=== PATIENT | female | born 1990 | race Caucasian/White ===

== ENCOUNTER 2017-11-30 14:47 | Emergency (ER) | payer MEDICAID ==
[2017-11-30 15:20] LABS: BASOPHILS % (AUTO) 0.3 %; EOSINOPHILS # (AUTO) 0.1 10^3/uL (0.0-0.7); EOSINOPHILS % (AUTO) 0.9 %; HGB - HEMOGLOBIN 12.7 g/dL (12.0-16.0); LYMPHOCYTES # (AUTO) 2.4 10^3/uL (1.5-3.5); LYMPHOCYTES % (AUTO) 26.2 %; MEAN CORPUSCULAR HEMOGLOBIN 30.7 pg (27.0-31.0); MEAN CORPUSCULAR HGB CONC 33.6 g/dL (32.0-36.0); MEAN CORPUSCULAR VOLUME 91.5 fL (81.0-99.0); MEAN PLATELET VOLUME 7.5 fL (7.9-10.8); MONOCYTES # (AUTO) 0.8 10^3/uL (0.0-1.0); MONOCYTES % (AUTO) 8.7 %; NEUTROPHILS % (AUTO) 63.9 %; PLT - PLATELET COUNT 293 10^3/uL (130-450); RED BLOOD COUNT 4.15 10^6/uL (4.20-5.40); WHITE BLOOD COUNT 9.3 x10^3/uL (4.8-10.8)
[2017-11-30 15:33] LABS: ALBUMIN 4.3 g/dL (3.2-5.5); ALBUMIN/GLOBULIN RATIO 1.5 (1.0-2.2); BILIRUBIN,TOTAL 0.8 mg/dL (0.2-1.0); CALCIUM 9.2 mg/dL (8.5-10.3); CREATININE 0.8 mg/dL (0.4-1.0); TOTAL PROTEIN 7.1 g/dL (6.7-8.2)
[2017-11-30 16:57] LABS: BILIRUBIN,URINE NEGATIVE (NEGATIVE); GLUCOSE, URINE (UA) NEGATIVE (NEGATIVE); KETONES,URINE (UA) NEGATIVE (NEGATIVE); LEUKOCYTE ESTERASE, URINE NEGATIVE (NEGATIVE); NITRITE,URINE NEGATIVE (NEGATIVE); OCCULT BLOOD,URINE NEGATIVE (NEGATIVE); PH,URINE 5.5 PH (5.0-7.5); PROTEIN,URINE NEGATIVE (NEGATIVE); UROBILINOGEN,URINE 0.2 (NORMAL) E.U./dL (NORMAL)
[2017-11-30 17:01] LABS: CLARITY,URINE CLEAR (CLEAR); HCG UR QUAL NEGATIVE
--- NOTE | 2017-11-30 17:37 | ED Physician Documentation ---
PD HPI FEMALE - Stated complaint Stated Complaint: LOWER R ABD PX, LOW BACK PX - Chief complaint Chief Complaint: Abd Pain - History obtained from History obtained from: Patient - History of Present Illness Timing - onset: How many weeks ago (1) Timing - duration: Weeks (1) Timing - details: Gradual onset, Intermittant, Waxing and waning Pain level max: 7 Pain level max: 3 Associated symptoms: Other (R pelvic pain). No: Fever, Chest/shoulder pain, Abdominal pain, Back pain, Pelvic pain, Vaginal pain, Vaginal bleeding, Vaginal discharge Contributing factors: Sexually active. No: , Tubal ligation, Hysterectomy Similar symptoms before: Has not had sx before Recently seen: Not recently seen - Additional information Additional information: LMP approx 2.5 weeks ago Review of Systems Ten Systems: 10 systems reviewed and negative Constitutional: denies: Fever, Chills Ears: denies: Ear pain Nose: denies: Rhinorrhea / runny nose, Congestion Throat: denies: Sore throat Cardiac: denies: Chest pain / pressure Respiratory: denies: Cough, Wheezing GI: denies: Nausea, Vomiting, Diarrhea : denies: Dysuria, Frequency, Hesitancy Skin: denies: Rash Musculoskeletal: denies: Neck pain, Back pain Neurologic: denies: Headache PD PAST MEDICAL HISTORY - Past Medical History Past Medical History: No - Past Surgical History Past Surgical History: No - Present Medications Home Medications: Ambulatory Orders Medication Instructions Recorded Confirmed Amox/Clav 875/125 [Augmentin] 1 tab PO Q12H #20 tablet 11/30/17 - Allergies Allergies/Adverse Reactions: Allergies Allergy/AdvReac Type Severity Reaction Status Date / Time Sulfa (Sulfonamide Allergy Unknown Verified 11/30/17 15:04 Antibiotics) - Living Situation Living Situation: reports: With family Living Arrangement: reports: At home - Social History Does the pt smoke?: No Does the pt have substance abuse?: No - Family History Family history: reports: Non contributory PD ED PE NORMAL - Vitals Vital signs reviewed: Yes - General General: Alert and oriented X 3 - HEENT HEENT: Moist mucous membranes - Neck Neck: Supple, no meningeal sign - Cardiac Cardiac: RRR - Respiratory Respiratory: No respiratory distress, Clear bilaterally - Abdomen Abdomen: Soft, Other (TTP R low pelvic. no peritoneal signs. neg rovsing, neg psoas, neg obturator. no tenderness at mcburney's point. ) - Female Female : Pt declined - Back Back: No CVA TTP, No spinal TTP - Derm Derm: Warm and dry, No rash - Neuro Neuro: Alert and oriented X 3 - Psych Psych: Normal mood, Normal affect Results - Vitals Vitals: Vital Signs - 24 hr 11/30/17 11/30/17 11/30/17 14:59 20:08 21:56 Temperature 36.2 C L 37 C 36.5 C Heart Rate 63 56 L 58 L Respiratory 16 12 16 Rate Blood Pressure 110/65 109/61 113/65 O2 Saturation 100 100 98 11/30/17 22:38 Temperature 37.0 C Heart Rate 70 Respiratory 16 Rate Blood Pressure 118/64 O2 Saturation 98 Oxygen O2 Source Room air - Labs Labs: Laboratory Tests 11/30/17 11/30/17 11/30/17 15:17 15:17 16:51 WBC 9.3 RBC 4.15 L Hgb 12.7 Hct 37.9 MCV 91.5 MCH 30.7 MCHC 33.6 RDW 13.0 Plt Count 293 MPV 7.5 L Neut # (Auto) 6.0 Lymph # (Auto) 2.4 [place] # (Auto) 0.8 Eos # (Auto) 0.1 Baso # (Auto) 0.0 Absolute Nucleated RBC 0.01 Nucleated RBC % 0.1 Sodium 138 Potassium 3.7 Chloride 103 Carbon Dioxide 27 Anion Gap 8.0 BUN 16 Creatinine 0.8 Estimated GFR (MDRD) 85 L Glucose 98 Calcium 9.2 Total Bilirubin 0.8 AST 20 ALT 13 Alkaline Phosphatase 45 Total Protein 7.1 Albumin 4.3 Globulin 2.8 Albumin/Globulin Ratio 1.5 Lipase 37 Urine Color YELLOW Urine Clarity CLEAR Urine pH 5.5 Ur Specific [place] <=1.005 Urine Protein NEGATIVE Urine Glucose (UA) NEGATIVE Urine Ketones NEGATIVE Urine Occult Blood NEGATIVE Urine Nitrite NEGATIVE Urine Bilirubin NEGATIVE Urine Urobilinogen 0.2 (NORMAL) Ur Leukocyte Esterase NEGATIVE Ur Microscopic Review NOT INDICATED Urine Culture Comments NOT INDICATED Urine HCG, Qual NEGATIVE - Rads (name of study) pelvic US Radiology: Prelim report reviewed, EMP read contemporaneously, See rad report ( Normal adnexa and endometrium. Possible sub-septate uterine morphology. 2.8 cm cyst in the right ovary) CT abd/pelvis Radiology: Prelim report reviewed, EMP read contemporaneously, See rad report ( Probable appendicitis. Clinical correlation recommended) PD MEDICAL DECISION MAKING - ED course Complexity details: reviewed results, re-evaluated patient, considered differential, d/w patient, d/w family, d/w learning consultant ED course: Patient is a 19-year-old female who has had right lower abdominal pain in the deep pelvis for the past week. Became worse over the past day and a half or so. No fevers. No vomiting. No diarrhea. No vaginal bleeding or discharge. No acute findings on ultrasound other than a 2.[address] scan was then undertaken which showed probable appendicitis, but this was equivocal. No fever. Normal white blood cell count. Discussed the case with Dr. Arthur, general surgery who does not feel that he would take this patient to the operating room and wants her placed on oral antibiotics and he will check on her in the office tomorrow. Discussed this with the patient and she is comfortable with this plan. She is comfortable going home and not staying in the hospital for observation. If she is not feeling well tomorrow, she will return to the emergency department. If she is feeling better, she will follow- up in the office with Dr. Arthur tomorrow for repeat evaluation. She was given IV Zosyn and will place on Augmentin. Patient counseled regarding signs and symptoms for which I believe and urgent re-evaluation would be necessary. Patient with good understanding of and agreement to plan and is comfortable going home at this time This document was made in part using voice recognition software. While efforts are made to proofread this document, sound alike and grammatical errors may occur. - Sepsis Event Vital Signs: Vital Signs - 24 hr 11/30/17 11/30/17 11/30/17 14:59 20:08 21:56 Temperature 36.2 C L 37 C 36.5 C Heart Rate 63 56 L 58 L Respiratory 16 12 16 Rate Blood Pressure 110/65 109/61 113/65 O2 Saturation 100 100 98 11/30/17 22:38 Temperature 37.0 C Heart Rate 70 Respiratory 16 Rate Blood Pressure 118/64 O2 Saturation 98 Oxygen O2 Source Room air Departure - Departure Disposition: 01 Home, Self Care Clinical Impression: Abdominal pain Qualifiers: Abdominal location: generalized Qualified Code(s): R10.84 - Generalized abdominal pain Condition: Stable Instructions: ED Abdominal Pain Appendx Poss Follow-Up: Jesus Arthur MD [Provider Admit Priv/Credential] - Tomorrow Prescriptions: Amox/Clav 875/125 [Augmentin] 1 tab PO Q12H #20 tablet Comments: Take all antibiotics until gone. Return if you worsen. If you are the same or doing better, please check in with Dr. Arthur tomorrow. If you are worsening , increasing pain, fevers, vomiting etc. return here. Discharge Date/Time: 11/30/17 22:38
--- NOTE | 2017-11-30 18:42 | Ultrasound Report ---
Procedure Date: 11/30/2017 Accession Number: [id number] / [id number] Procedure: US - Pelvic w/Transvag+Doppler Comp CPT Code: FULL RESULT: EXAM: PELVIC ULTRASOUND EXAM DATE: 11/30/2017 06:21 PM. CLINICAL HISTORY: Pelvic pain, right. COMPARISON: None. TECHNIQUE: Realtime transabdominal pelvic scan performed to identify the uterus and adnexa and as an overview of other pelvic structures, followed by transvaginal scan to provide greater detail of the uterus and adnexa, with static image documentation. FINDINGS: Uterus: 7.7 x 3.2 x 4.1 cm, volume 53 cc. Anteflexed position. Normal overall size and echotexture. Possible sub-septate configuration. Masses: None. Endometrium: 7.6 mm. Normal. Cervix: Unremarkable. Right Ovary: 3.7 x 1.8 x 2.8 cm, volume 10 cc. Normal echotexture and blood flow. A cyst measures up to 2.8 cm, within normal limits for age. Left Ovary: 4.2 x 2.1 x 2.6 cm, volume 12 cc. Normal echotexture and blood flow. Free Fluid: None. Other: None. IMPRESSION: 1. Normal adnexa and endometrium. 2. Possible subseptate uterine morphology. RADIA
[2017-11-30] MEDS ORDERED: KETOROLAC 60 MG/2 ML VIAL IVP STA (19:13)
[2017-11-30] MEDS ORDERED: IOPAMIDOL-300 100 ML VIAL ONE (19:22)
[2017-11-30] MEDS ORDERED: IOPAMIDOL-300 100 ML VIAL IVP ONE (19:50)
--- NOTE | 2017-11-30 21:07 | CT Report ---
Procedure Date: 11/30/2017 Accession Number: [id number] / [id number] Procedure: CT - Abdomen/Pelvis W/ CPT Code: FULL RESULT: EXAM: CT ABDOMEN AND PELVIS EXAM DATE: 11/30/2017 07:52 PM. CLINICAL HISTORY: Right lower quadrant abdomen pain. COMPARISONS: No prior CT exam. Pelvic ultrasound earlier today. TECHNIQUE: Routine helical CT imaging was performed through the abdomen and pelvis. IV contrast: 100 mL Isovue-300. Enteric contrast: No. Reconstructions: Coronal and sagittal. In accordance with CT protocol optimization, one or more of the following dose reduction techniques were utilized for this exam: automated exposure control, adjustment of mA and/or KV based on patient size, or use of iterative reconstructive technique. FINDINGS: Lung Bases: Unremarkable. Liver: Normal. No masses. Gallbladder/Bile Ducts: Unremarkable. Spleen: Normal. Pancreas: Normal. Adrenal Glands: Normal. Kidneys: Normal. 1 cm renal cysts bilaterally. No masses or hydronephrosis. Peritoneal Cavity/Bowel: Normal. No free fluid, free air or adenopathy. No masses or acute inflammatory process. Proximal half of the appendix appears normal. However, suspect moderate wall thickening of the distal half of the appendix, with moderate amount adjacent edema, difficult to definitely confirm given the multiple loops of nonopacified small bowel deep lower right pelvis. This is suggested on coronal image 27, axial image 65, and coronal image 27. 1 x 2 mm linear high density (? Tiny appendicolith) Within the appendix at the possible transition point. Pelvic Organs: 2.5 cm involuting cyst right ovary. Trace amount of free cul-de-sac fluid. The bladder and visualized pelvic organs are within normal limits. Vasculature: No aneurysms or other significant abnormality. Bones: No significant abnormality. Other: None. IMPRESSION: Probable appendicitis. Lack of oral contrast precludes definitive diagnosis. Clinical correlation recommended. RADIA
[2017-11-30] MEDS ORDERED: PIPERACILLIN/TAZOBACTAM 3.375 GM in SODIUM CHLORIDE 0.9% MINIBAG 100 ML IV STA (21:32)
[2017-11-30 22:44] VITALS: BP 118/64
== END 2017-11-30 22:38 | disposition home or self-care (01) ==
LOC: ED 14:47
DX: R10.9 Unspecified abdominal pain (principal); N83.201 Unspecified ovarian cyst, right side
CPT/HCPCS: 36415; 74177; 76830; 76856; 80053; 81003; 81025; 83690; 85025; 93975; 96365; 96375; 99283; 99284; Q9967; 81001; 87086

== ENCOUNTER 2017-12-01 14:58 | Emergency (ER) | payer MEDICAID ==
[2017-12-01 15:23] LABS: BASOPHILS # (AUTO) 0.1 10^3/uL (0.0-0.1); BASOPHILS % (AUTO) 0.5 %; EOSINOPHILS # (AUTO) 0.1 10^3/uL (0.0-0.7); EOSINOPHILS % (AUTO) 0.7 %; LYMPHOCYTES # (AUTO) 2.2 10^3/uL (1.5-3.5); MEAN CORPUSCULAR HEMOGLOBIN 31.2 pg (27.0-31.0); MEAN CORPUSCULAR VOLUME 91.8 fL (81.0-99.0); MEAN PLATELET VOLUME 7.8 fL (7.9-10.8); MONOCYTES # (AUTO) 0.8 10^3/uL (0.0-1.0); NEUTROPHILS # (AUTO) 6.6 10^3/uL (1.5-6.6); NEUTROPHILS % (AUTO) 67.8 %; PLT - PLATELET COUNT 271 10^3/uL (130-450); RED BLOOD COUNT 3.84 10^6/uL (4.20-5.40); RED CELL DISTRIBUTION WIDTH 13.3 % (12.0-15.0); WHITE BLOOD COUNT 9.8 x10^3/uL (4.8-10.8)
[2017-12-01 15:36] LABS: ALBUMIN/GLOBULIN RATIO 1.5 (1.0-2.2); BILIRUBIN,TOTAL 0.8 mg/dL (0.2-1.0); CALCIUM 9.2 mg/dL (8.5-10.3); TOTAL PROTEIN 6.6 g/dL (6.7-8.2)
[2017-12-01] MEDS ORDERED: cefTRIAXone 1 GM VIAL IVP STA (17:42)
[2017-12-01] MEDS ORDERED: SODIUM CHLORIDE 0.9% 1,000 ML IV ONE (17:42)
[2017-12-01] MEDS ORDERED: ACETAMINOPHEN 325 MG TABLET PO STA (17:50)
--- NOTE | 2017-12-01 18:45 | ED Physician Documentation ---
PD HPI ABD PAIN - Stated complaint Stated Complaint: ABD PX/DIZZY - Chief complaint Chief Complaint: Abd Pain - History obtained from History obtained from: Patient - History of Present Illness Pain level max: 6 Pain level now: 5 Quality: Aching, Pain Location: RLQ Improved by: Laying still Worsened by: Palpation Associated symptoms: No: Fever, Nausea, Vomiting, Hematemesis, Diarrhea - Additional information Additional information: Patient is a 27-year-old female with right lower quadrant abdominal pain for the past week that is worsened over the past 2 days. Seen here last night and had a CT scan that showed probable appendicitis. Dr. Arthur was counseled at that time and did not feel the appendix need to be removed. She has returned today for repeat evaluation as requested. She states she is still having pain in the right lower quadrant. No fevers. No vomiting. She does feel lightheaded with standing today. Review of Systems Ten Systems: 10 systems reviewed and negative Constitutional: denies: Fever, Chills Nose: denies: Rhinorrhea / runny nose, Congestion Respiratory: denies: Cough GI: denies: Nausea, Vomiting, Diarrhea : denies: Now EGA Skin: denies: Rash PD PAST MEDICAL HISTORY - Past Medical History Past Medical History: No - Past Surgical History Past Surgical History: No - Present Medications Home Medications: Ambulatory Orders Medication Instructions Recorded Confirmed Amox/Clav 875/125 [Augmentin] 1 tab PO Q12H #20 tablet 11/30/17 12/01/17 - Allergies Allergies/Adverse Reactions: Allergies Allergy/AdvReac Type Severity Reaction Status Date / Time Sulfa (Sulfonamide Allergy Unknown Verified 12/01/17 15:27 Antibiotics) - Living Situation Living Situation: reports: With family Living Arrangement: reports: At home - Social History Does the pt smoke?: No Smoking Status: Never smoker Does the pt drink ETOH?: Yes Does the pt have substance abuse?: No - Immunizations Immunizations are current?: Yes PD ED PE NORMAL - Vitals Vital signs reviewed: Yes - General General: Alert and oriented X 3, No acute distress - HEENT HEENT: Moist mucous membranes - Neck Neck: Supple, no meningeal sign - Cardiac Cardiac: RRR - Respiratory Respiratory: No respiratory distress, Clear bilaterally - Abdomen Abdomen: Soft, Non distended, Other (TTP RLQ without peritoneal signs. no rebound or guarding. neg rovsing. neg psoas.) - Back Back: No spinal TTP - Derm Derm: Warm and dry - Extremities Extremities: No edema - Neuro Neuro: Alert and oriented X 3 - Psych Psych: Normal mood, Normal affect Results - Vitals Vitals: Vital Signs - 24 hr 12/01/17 12/01/17 15:25 18:52 Temperature 36.9 C 36.5 C Heart Rate 74 54 L Respiratory 16 18 Rate Blood Pressure 108/71 106/59 L O2 Saturation 98 100 Oxygen O2 Source Room air - Labs Labs: Laboratory Tests 12/01/17 12/01/17 15:16 15:16 WBC 9.8 RBC 3.84 L Hgb 12.0 Hct 35.3 L MCV 91.8 MCH 31.2 H MCHC 34.0 RDW 13.3 Plt Count 271 MPV 7.8 L Neut # (Auto) 6.6 Lymph # (Auto) 2.2 [place] # (Auto) 0.8 Eos # (Auto) 0.1 Baso # (Auto) 0.1 Absolute Nucleated RBC 0.00 Nucleated RBC % 0.0 Sodium 139 Potassium 4.3 Chloride 107 Carbon Dioxide 26 Anion Gap 6.0 BUN 16 Creatinine 1.0 Estimated GFR (MDRD) 66 L Glucose 107 H Calcium 9.2 Total Bilirubin 0.8 AST 16 ALT 12 Alkaline Phosphatase 38 L Total Protein 6.6 L Albumin 4.0 Globulin 2.6 Albumin/Globulin Ratio 1.5 Lipase 35 PD MEDICAL DECISION MAKING - ED course Complexity details: reviewed old records, reviewed results, re-evaluated patient , considered differential, d/w patient, d/w family, d/w loan consultant ED course: Patient is a 27-year-old female who presents to the emergency department for repeat evaluation of her abdomen after a CT showed probable appendicitis last night. Will laboratory testing was reperformed. Dr. Arthur came to the emergency department and evaluated the patient personally. He states that after evaluating the patient and speaking with her he does not feel that she likely has appendicitis and recommends that she continue the antibiotics at home. I gave the patient strict return precautions and she will follow up with him in 2 days for repeat evaluation. She will return here if she worsens or fails to improve. Patient counseled regarding signs and symptoms for which I believe and urgent re-evaluation would be necessary. Patient with good understanding of and agreement to plan and is comfortable going home at this time This document was made in part using voice recognition software. While efforts are made to proofread this document, sound alike and grammatical errors may occur. Patient and spouse were counseled at length regarding potential complications and the diagnostic uncertainty at this time. - Sepsis Event Vital Signs: Vital Signs - 24 hr 12/01/17 12/01/17 15:25 18:52 Temperature 36.9 C 36.5 C Heart Rate 74 54 L Respiratory 16 18 Rate Blood Pressure 108/71 106/59 L O2 Saturation 98 100 Oxygen O2 Source Room air Departure - Departure Disposition: 01 Home, Self Care Clinical Impression: Abdominal pain Qualifiers: Abdominal location: right lower quadrant Qualified Code(s): R10.31 - Right lower quadrant pain Condition: Good Instructions: ED Abdominal Pain Appendx Poss Follow-Up: Jesus Arthur MD [Provider Admit Priv/Credential] - 12/03/17 Comments: Continue the antibiotics were prescribed last night. Follow-up with Dr. Arthur in 2 days for a recheck. Return sooner if you worsen. Discharge Date/Time: 12/01/17 18:53
[2017-12-01 18:52] VITALS: BP 106/59
--- NOTE | 2017-12-02 01:55 | CONSULTATION NOTE ---
Referring Provider Name of Referring Provider:: Dr. Francois Schilling Consult Date: 12/01/17 Chief Complaint - Chief Complaint Chief Complaint: Abdominal pain History of Present Illness - Admitted From Admitted From:: Seen in ED Room#1 - History Obtained From Records Reviewed: Yes History obtained from: Patient and chart Exam Limitations: None - History of Present Illness HPI Comment/Other: Dr. Francois Blount asked that I see this very pleasant 27-year-old female for the possibility of acute appendicitis. The patient states that she has had symptoms for over a week. The abdominal pain is migratory. When it comes can be quite severe but then once gone is completely gone. There is been no significant association with nausea, vomiting, diarrhea, or constipation. The patient states that when she does a modified sit up where she twists her torso to her right and left her right knee it seems to make the pain worse. There has been no nausea or vomiting. Nor has there been any significant anorexia. She lives in a [facility]. She is very in tune with healthy eating. We discussed probiotics and the possible deleterious effects of antibiotics. She wondered whether her abdominal pain is a manifestation of an allergy and I explained to her that it was not. I went over the CT findings with her. Of note Dr. Schilling had seen her yesterday and was seeing her again today out of concern. History - Family & Social History Living arrangement: At home Living Situation: With family Meds/Allgy - Home Medications Home Medications: Ambulatory Orders Medication Instructions Recorded Confirmed Amox/Clav 875/125 [Augmentin] 1 tab PO Q12H #20 tablet 11/30/17 12/01/17 - Allergies Allergies/Adverse Reactions: Allergies Allergy/AdvReac Type Severity Reaction Status Date / Time Sulfa (Sulfonamide Allergy Unknown Verified 12/01/17 15:27 Antibiotics) Review of Systems - Gastrointestinal Gastrointestinal: reports: Abdominal pain (Occasional and migratory throughout abdomen.) Exam - Vital Signs Reviewed Vital Signs: Yes Vital Signs: Vital Signs x48h Temp Pulse Resp BP Pulse Ox 12/01/17 18:52 36.5 C 54 L 18 106/59 L 100 - Physical Exam General Appearance: positive: No acute distress Eyes Bilateral: positive: No lid inflammation, Conjunctivae nml, No scleral icterus ENT: positive: No signs of dehydration Neck: positive: Trachea midline Respiratory: positive: Chest non-tender, No respiratory distress, Breath sounds nml Cardiovascular: positive: Regular rate & rhythm Abdomen: positive: Non-tender (At [place] point.), No organomegaly, Nml bowel sounds, No distention Skin: positive: Color nml Extremities: positive: Nml appearance Neurologic/Psychiatric: positive: Oriented x3 Conclusion/Plan - Diagnosis Diagnosis: Abdominal pain - non surgical at this point and time. - Plan Plan: Watchful waiting. 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 She again has normal lab values. Clinically, she has the exact opposite of a classic story for appendicitis (rn long term care pain, migratory, not persistent, no nausea, no leukocytosis). If she were to develop any of the symptoms I would be inclined to operate on her. I explained her that now that the communication lines are open if she develops a temperature over 38.5 Celsius or 101.5 Fahrenheit to contact me. She has pain localized in the right lower quadrant and it persists to certainly contact me. At some point likely in approximately 1 week assuming her condition does not deteriorate I would recommend repeat CAT scan. - Lab Results Lab results reviewed: Yes Fish Bones: 12/01/17 15:16 12/01/17 15:16 - Diagnostic Imaging Results Diagnostic Imaging Results: positive: Final report reviewed Diagnostic Imaging Results Comments: Please note that the CT reading did change slightly over 24 hours. Clinical correlation is that this is not appendicitis.
== END 2017-12-01 18:53 | disposition home or self-care (01) ==
LOC: ED 14:58
DX: R10.31 Right lower quadrant pain (principal)
CPT/HCPCS: 36415; 80053; 83690; 85025; 96374; 99283; A9270

== ENCOUNTER 2017-12-15 12:40 | Emergency (ER) | payer MEDICAID ==
[2017-12-15 13:03] LABS: BASOPHILS # (AUTO) 0.1 10^3/uL (0.0-0.1); BASOPHILS % (AUTO) 0.5 %; EOSINOPHILS # (AUTO) 0.1 10^3/uL (0.0-0.7); EOSINOPHILS % (AUTO) 0.9 %; HGB - HEMOGLOBIN 11.9 g/dL (12.0-16.0); LYMPHOCYTES # (AUTO) 2.1 10^3/uL (1.5-3.5); LYMPHOCYTES % (AUTO) 14.6 %; MEAN CORPUSCULAR HGB CONC 34.6 g/dL (32.0-36.0); MEAN CORPUSCULAR VOLUME 89.7 fL (81.0-99.0); MONOCYTES # (AUTO) 1.1 10^3/uL (0.0-1.0); MONOCYTES % (AUTO) 7.3 %; NEUTROPHILS # (AUTO) 11.1 10^3/uL (1.5-6.6); NEUTROPHILS % (AUTO) 76.7 %; PLT - PLATELET COUNT 453 10^3/uL (130-450); RED BLOOD COUNT 3.85 10^6/uL (4.20-5.40); RED CELL DISTRIBUTION WIDTH 12.5 % (12.0-15.0); WHITE BLOOD COUNT 14.4 x10^3/uL (4.8-10.8)
[2017-12-15 13:26] LABS: ALBUMIN/GLOBULIN RATIO 1.3 (1.0-2.2); BILIRUBIN,TOTAL 0.5 mg/dL (0.2-1.0); CALCIUM 9.6 mg/dL (8.5-10.3); CREATININE 0.7 mg/dL (0.4-1.0); TOTAL PROTEIN 7.2 g/dL (6.7-8.2)
[2017-12-15] MEDS ORDERED: IOPAMIDOL-300 100 ML VIAL ONE (14:21)
[2017-12-15] MEDS ORDERED: IOPAMIDOL-300 50 ML VIAL ONE (14:22)
[2017-12-15 14:53] LABS: BILIRUBIN,URINE NEGATIVE (NEGATIVE); GLUCOSE, URINE (UA) NEGATIVE (NEGATIVE); KETONES,URINE (UA) NEGATIVE (NEGATIVE); LEUKOCYTE ESTERASE, URINE NEGATIVE (NEGATIVE); NITRITE,URINE NEGATIVE (NEGATIVE); OCCULT BLOOD,URINE SMALL (NEGATIVE); PROTEIN,URINE NEGATIVE (NEGATIVE); UROBILINOGEN,URINE 0.2 (NORMAL) E.U./dL (NORMAL)
[2017-12-15 14:57] LABS: CLARITY,URINE CLEAR (CLEAR); HCG UR QUAL NEGATIVE
[2017-12-15 15:05] LABS: BACTERIA,URINE Rare /HPF (None Seen); RBC,URINE 0-5 /HPF (0-5); SQUAMOUS EPITHELIAL CELL,UR RARE Squamous (<= Few)
--- NOTE | 2017-12-15 15:18 | ED Physician Documentation ---
PD HPI ABD PAIN - Stated complaint Stated Complaint: ABD PAIN, DIZZYNESS - Chief complaint Chief Complaint: Abd Pain - History obtained from History obtained from: Patient - History of Present Illness Timing - onset: How many weeks ago (2-3) Timing - duration: Weeks (2-3) Timing - details: Gradual onset, Waxing and waning Pain level max: 7 Pain level now: 5 Quality: Aching, Pain Location: RLQ Recently seen: Emergency Dept (x2 for the same. started on abx and states now is feeling worse. Possible appendicitis on last CT. Dr. Arthur, consulted at that time and felt it could be better treated with abx rather than surgery at that point.) Review of Systems Ten Systems: 10 systems reviewed and negative Constitutional: denies: Fever, Chills Ears: denies: Ear pain Nose: denies: Rhinorrhea / runny nose, Congestion Throat: denies: Sore throat Cardiac: denies: Chest pain / pressure Respiratory: denies: Cough GI: denies: Vomiting, Constipation, Diarrhea, Hematemesis, Bloody / black stool : denies: Dysuria, Frequency, Hesitancy, Hematuria, Discharge, Vaginal bleeding Skin: denies: Rash Musculoskeletal: denies: Neck pain, Back pain Neurologic: denies: Headache PD PAST MEDICAL HISTORY - Past Medical History Past Medical History: No - Past Surgical History Past Surgical History: No - Present Medications Home Medications: Ambulatory Orders Medication Instructions Recorded Confirmed No Known Home Medications [No 12/15/17 12/15/17 Known Home Medications] - Allergies Allergies/Adverse Reactions: Allergies Allergy/AdvReac Type Severity Reaction Status Date / Time Sulfa (Sulfonamide Allergy Unknown Verified 12/15/17 12:47 Antibiotics) - Social History Does the pt smoke?: No Smoking Status: Never smoker Does the pt drink ETOH?: Yes Does the pt have substance abuse?: No - Immunizations Immunizations are current?: Yes PD ED PE NORMAL - Vitals Vital signs reviewed: Yes - General General: Alert and oriented X 3, No acute distress, Well developed/nourished - HEENT HEENT: Moist mucous membranes - Neck Neck: Supple, no meningeal sign - Cardiac Cardiac: RRR, Strong equal pulses - Respiratory Respiratory: No respiratory distress, Clear bilaterally - Abdomen Abdomen: Soft, Other (TTP RLQ without peritoneal signs) - Female Female : Pt declined - Back Back: No CVA TTP, No spinal TTP - Derm Derm: Warm and dry, No rash - Extremities Extremities: No edema - Neuro Neuro: Alert and oriented X 3 - Psych Psych: Normal mood, Normal affect Results - Vitals Vitals: Vital Signs - 24 hr 12/15/17 12/15/17 12/15/17 12:45 15:30 17:30 Temperature 36.3 C L Heart Rate 69 62 60 Respiratory 16 18 16 Rate Blood Pressure 124/69 114/64 116/62 O2 Saturation 100 100 100 Oxygen O2 Source Room air - Labs Labs: Laboratory Tests 12/15/17 12/15/17 12/15/17 13:00 13:00 13:24 WBC 14.4 H RBC 3.85 L Hgb 11.9 L Hct 34.5 L MCV 89.7 MCH 31.0 MCHC 34.6 RDW 12.5 Plt Count 453 H MPV 7.0 L Neut # (Auto) 11.1 H Lymph # (Auto) 2.1 Bollinger # (Auto) 1.1 H Eos # (Auto) 0.1 Baso # (Auto) 0.1 Absolute Nucleated RBC 0.01 Nucleated RBC % 0.1 Sodium 137 Potassium 4.2 Chloride 101 Carbon Dioxide 27 Anion Gap 9.0 BUN 18 Creatinine 0.7 Estimated GFR (MDRD) 100 Glucose 96 Calcium 9.6 Total Bilirubin 0.5 AST 15 ALT 12 Alkaline Phosphatase 66 Total Protein 7.2 Albumin 4.0 Globulin 3.2 Albumin/Globulin Ratio 1.3 Lipase 33 Urine Color YELLOW Urine Clarity CLEAR Urine pH 6.0 Ur Specific Dennison 1.010 Urine Protein NEGATIVE Urine Glucose (UA) NEGATIVE Urine Ketones NEGATIVE Urine Occult Blood SMALL H Urine Nitrite NEGATIVE Urine Bilirubin NEGATIVE Urine Urobilinogen 0.2 (NORMAL) Ur Leukocyte Esterase NEGATIVE Urine RBC 0-5 Urine WBC 0-3 Ur Squamous Epith Cells RARE Squamous Urine Bacteria Rare Ur Microscopic Review INDICATED Urine Culture Comments NOT INDICATED Urine HCG, Qual 12/15/17 13:24 WBC RBC Hgb Hct MCV MCH MCHC RDW Plt Count MPV Neut # (Auto) Lymph # (Auto) Bollinger # (Auto) Eos # (Auto) Baso # (Auto) Absolute Nucleated RBC Nucleated RBC % Sodium Potassium Chloride Carbon Dioxide Anion Gap BUN Creatinine Estimated GFR (MDRD) Glucose Calcium Total Bilirubin AST ALT Alkaline Phosphatase Total Protein Albumin Globulin Albumin/Globulin Ratio Lipase Urine Color Urine Clarity Urine pH Ur Specific Dennison 1.010 Urine Protein Urine Glucose (UA) Urine Ketones Urine Occult Blood Urine Nitrite Urine Bilirubin Urine Urobilinogen Ur Leukocyte Esterase Urine RBC Urine WBC Ur Squamous Epith Cells Urine Bacteria Ur Microscopic Review Urine Culture Comments Urine HCG, Qual NEGATIVE - Rads (name of study) CT abd/pelvis Radiology: Prelim report reviewed, EMP read contemporaneously, See rad report ( New [id number] right hydronephrosis, with ureteral transition point in the area of the appendix. Differential is between a small occult stone versus secondary involvement with an inflammatory process such as appendicitis/Crohn's disease/gastroenteritis. 2. Distal half of the appendix not visualized. ) PD MEDICAL DECISION MAKING - ED course Complexity details: reviewed old records, reviewed results, re-evaluated patient , considered differential, d/w patient, d/w behavioral health consultant ED course: Patient is a 27-year-old female who has continued right lower quadrant abdominal pain since I saw her a few weeks ago. She finished her antibiotic course but the pain has continued. No fevers but does have a leukocytosis today. CT scan does not reveal a clearly visible abnormal appendix at this time. She does have new mild to moderate right hydronephrosis with ureteral transition point in the area of the appendix, possible occult stone versus secondary involvement of inflammatory process such as appendicitis. Therefore I consulted Dr. Arnold, surgery on-call who came and evaluated the patient. He was getting ready to take her to the operating room and she changed her mind and does not want to go to the operating room, but will instead follow-up as an outpatient. Dr. Arnold does not want to repeat an antibiotic course at this time and I think this is reasonable. Patient and family counseled regarding signs and symptoms for which I believe and urgent re-evaluation would be necessary. Patient with good understanding of and agreement to plan and is comfortable going home at this time This document was made in part using voice recognition software. While efforts are made to proofread this document, sound alike and grammatical errors may occur. - Sepsis Event Vital Signs: Vital Signs - 24 hr 12/15/17 12/15/17 12/15/17 12:45 15:30 17:30 Temperature 36.3 C L Heart Rate 69 62 60 Respiratory 16 18 16 Rate Blood Pressure 124/69 114/64 116/62 O2 Saturation 100 100 100 Oxygen O2 Source Room air Departure - Departure Disposition: Home, Self Care Clinical Impression: Abdominal pain Qualifiers: Abdominal location: right lower quadrant Qualified Code(s): R10.31 - Right lower quadrant pain Condition: Stable Instructions: ED Abdominal Pain Appendx Poss Follow-Up: Artemio Arnold MD [Provider Admit Priv/Credential] - Within 3 Days Comments: As we have discussed, because of your symptoms is unclear today. It may very well be related to an atypical appendicitis or tip appendicitis. Please return if you worsen. It is important to follow-up closely with Dr. Arnold for further evaluation. We [facility] and have elected not to have your appendix out tonight Discharge Date/Time: 12/15/17 19:26
[2017-12-15] MEDS ORDERED: IOPAMIDOL-300 100 ML VIAL IVP ONE (15:37)
[2017-12-15] MEDS ORDERED: IOPAMIDOL-300 50 ML VIAL PO ONE (15:37)
--- NOTE | 2017-12-15 17:22 | CT Report ---
Reason: RLQ abd pain Procedure Date: 12/15/2017 Accession Number: [id number] / [id number] Procedure: CT - Abdomen/Pelvis W/ CPT Code: FULL RESULT: EXAM: CT ABDOMEN AND PELVIS EXAM DATE: 12/15/2017 03:36 PM. CLINICAL HISTORY: RLQ abdominal pain. COMPARISONS: ABDOMEN/PELVIS W/ 11/30/2017. TECHNIQUE: Routine helical CT imaging was performed through the abdomen and pelvis. IV contrast: ISOVUE 300 100mL. Enteric contrast: Oral contrast. Reconstructions: Coronal and sagittal. One hour and 15 minutes after the initial exam, this lady was brought back to the department, voided, with additional 5 mm scans obtained through the pelvis with patient in a prone position. No additional oral nor IV contrast. In accordance with CT protocol optimization, one or more of the following dose reduction techniques were utilized for this exam: automated exposure control, adjustment of mA and/or KV based on patient size, or use of iterative reconstructive technique. FINDINGS: Lung Bases: Unremarkable. Liver: Normal. No masses. Gallbladder/Bile Ducts: Unremarkable. Spleen: Normal. Pancreas: Normal. Adrenal Glands: Normal. Kidneys: Normal left kidney. New [id number]-[id number] right hydronephrosis. Right ureter is mildly distended to the level of the mid pelvis level with the cecum, without appreciable calcification. Distal third is tiny in caliber. Peritoneal Cavity/Bowel: Normal. No free fluid, free air or adenopathy. No masses or acute inflammatory process. Despite the more than 2-hour delay after ingestion of contrast, no oral contrast is seen within the distalmost ileum. Proximal half of the appendix is normal. Distal half not seen. Pelvic Organs: Normal. The bladder and visualized pelvic organs are within normal limits. Vasculature: No aneurysms or other significant abnormality. Bones: No significant abnormality. Other: None. IMPRESSION: 1. New [id number] right hydronephrosis, with ureteral transition point in the area of the appendix. Differential is between a small occult stone versus secondary involvement with an inflammatory process such as appendicitis/Crohn's disease/gastroenteritis. 2. Distal half of the appendix not visualized. RADIA The above findings were discussed with Jem Schilling by Dr. Olive Michelle at 17:20 hrs on 12/15/17.
[2017-12-15] MEDS ORDERED: SODIUM CHLORIDE 0.9% 1,000 ML IV ONE ×2 (17:34→19:17)
[2017-12-15] MEDS ORDERED: PIPERACILLIN/TAZOBACTAM 3.375 GM in SODIUM CHLORIDE 0.9% MINIBAG 100 ML IV STA (17:34)
--- NOTE | 2017-12-15 18:09 | CONSULTATION NOTE ---
Referring Provider Name of Referring Provider:: Dr. Schilling Consult Date: 12/15/17 Chief Complaint - Chief Complaint Chief Complaint: abd pain History of Present Illness - Admitted From Admitted From:: ER - History Obtained From Records Reviewed: yes History obtained from: pt and records Exam Limitations: none - History of Present Illness HPI Comment/Other: 27 yo [id number] with LMP 2 days ago with recurrent/persistent RLQ abdominal pain. Pain is sharp, colicky, waxes and wanes but never completely resolves following onset approximately 3 weeks ago. Associated nausea but no vomiting, dizziness but no syncope, radiation into back and down right leg at times, without urinary or respiratory sx. No prior similar episodes although she reports severe dysmenorrhea sx different than these. No recent wt loss, change in bowel habits, melena, BRBPR or FH GI tumors. +FH appendicitis in her father. She was seen initially on 12/[address] findings were suggestive of appendiceal appendicolith and tip appendicitis. She was treated with 10 days of Augmentin without improvement in sx, prompting her return to the ER today with worsening pain. Previous evaluation has shown nl labs and nl pelvic US. Repeat CT abd/ pelvis today shows inadequate visualization of the distal appendix and mild right sided hydronephrosis. She denies hematuria or dysuria, but notes urinary frequency. UA neg except small blood (pt having period). WBC elevated at 14K. Surgical consultation was requested. 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), Other (dysmenorrhea) : reports: Frequency Musculoskeletal: reports: None MRSA Hx?: No - Family & Social History Family History Comment/Other: neg for GI tumors; + for appendicitis in father Living arrangement: At home - Substance History Use: Uses substance without health or social issues: Alcohol Abuse: Recurrent use of substance despite neg consequences: NONE Dependence: Experiences withdrawal or developed tolerances: NONE - POLST POLST Status: Full Code Meds/Allgy - Home Medications Home Medications: Ambulatory Orders Medication Instructions Recorded Confirmed No Known Home Medications [No 12/15/17 12/15/17 Known Home Medications] - Allergies Allergies/Adverse Reactions: Allergies Allergy/AdvReac Type Severity Reaction Status Date / Time Sulfa (Sulfonamide Allergy Unknown Verified 12/15/17 12:47 Antibiotics) Review of Systems - Constitutional Constitutional: reports: Other (dizziness) - Cardiovascular Cariovascular: reports: Lightheadedness. denies: Chest pain - Respiratory Respiratory: denies: Cough, Sputum production, Wheezing - Gastrointestinal Gastrointestinal: reports: Abdominal pain, Abdominal distention, Nausea, Bloating. denies: Change in bowel habits, Rectal bleeding, Black stools, Bloody stools, Vomiting, Chandan blood emesis, Coffee grounds emesis, Reflux/ heartburn - Genitourinary Genitourinary: reports: Frequency. denies: Dysuria, Hematuria - Neurological Neurological: reports: Dizziness - Hematologic/Lymphatic Hematologic/Lymphatic: denies: Bruising, Blood clots, Bleeding tendencies - All Other Systems All Other Systems: reports: Reviewed and negative Exam - Vital Signs Reviewed Vital Signs: Yes Vital Signs: Vital Signs x48h Temp Pulse Resp BP Pulse Ox 12/15/17 15:30 62 18 114/64 100 12/15/17 12:45 36.3 C L 69 16 124/69 100 - Physical Exam General Appearance: positive: Alert, Mild distress Eyes Bilateral: positive: Conjunctivae nml, No scleral icterus ENT: positive: ENT inspection nml, Pharynx nml, No signs of dehydration Neck: positive: Nml inspection, No JVD. negative: Lymphadenopathy (R), Lymphadenopathy (L) Respiratory: positive: Chest non-tender, No respiratory distress, Breath sounds nml. negative: Wheezes, Rales, Rhonchi Cardiovascular: positive: Regular rate & rhythm, No murmur, No gallop Abdomen: positive: Nml bowel sounds, Tenderness (RLQ tenderness/voluntary guarding/rebound max just inferior to McBurney's pt. Neg Rovsing's and psoas signs; +obturator sign), Guarding, Rebound Skin: positive: Color nml, No rash, Warm, Dry Extremities: positive: Non-tender, Nml appearance, No pedal edema. negative: Calf tenderness Neurologic/Psychiatric: positive: Oriented x3 Conclusion/Plan - Diagnosis Diagnosis: Acute abdomen. DDX includes chronic/smoldering appendicitis, nephrolithiasis, endometriosis, Crohn's disease, IBS. - Plan Plan: diagnostic laparoscopy and appendectomy. PAR conference with pt and risks including bleeding, infection, persistent pain were discussed and consent obtained. Pt then discussed situation with her parents and decided that she wasn 't ready to proceed with surgery at this time. She will f/u in my office as an outpt or return to the ER sooner prn. This was a 90 minute evaluation including records review and extensive discussion of diagnoses and possible therapies with pt and family. - Lab Results Fish Bones: 12/15/17 13:00 12/15/17 13:00 Other Lab Results: U/A small blood; neg urine preg test; CMP nl. - Diagnostic Imaging Results Diagnostic Imaging Results: positive: Final report reviewed Diagnostic Imaging Results Comments: See HPI
[2017-12-15] MEDS ORDERED: BUPIVACAINE 0.5%-EPI 1:200000 PF 30 ML VIAL ONE (18:10)
--- NOTE | 2017-12-15 18:20 | ANESTHESIA ---
Pre-Anesthesia VS, & Labs - Diagnosis right lower quadrant pain - Procedure laparoscopic appendectomy Vital Signs: Temp Pulse Resp BP Pulse Ox 36.3 C L 62 18 114/64 100 12/15/17 12:45 12/15/17 15:30 12/15/17 15:30 12/15/17 15:30 12/15/17 15:30 Height 5 ft 4 in Weight (kg) 61.235 kg Body Mass Index 23.1 - NPO >8 hours - Is Patient ?: No - Lab Results Fish Bones: 12/15/17 13:00 12/15/17 13:00 Home Medications and Allergies Home Medications: Ambulatory Orders Medication Instructions Recorded Confirmed No Known Home Medications [No 12/15/17 12/15/17 Known Home Medications] Allergies/Adverse Reactions: Allergies Allergy/AdvReac Type Severity Reaction Status Date / Time Sulfa (Sulfonamide Allergy Unknown Verified 12/15/17 12:47 Antibiotics) Anes History & Medical History - Medical History Cardiovascular: reports: None Pulmonary: reports: None Gastrointestinal: reports: None Urinary: reports: Frequency Neuro: reports: None Musculoskeletal: reports: None Endocrine/Autoimmune: reports: None Smoking Status: Never smoker Exam General: Alert Plan Anesthesia Type: General Consent for Procedure(s) Verified and Reviewed: Yes Code Status: Attempt Resuscitation ASA classification: 2-Mild systemic disease Is this case an emergency?: Yes
[2017-12-15 19:10] VITALS: BP 116/62
== END 2017-12-15 19:26 | disposition home or self-care (01) ==
LOC: ED 12:40 → SDS 18:19 → ED 19:26
DX: R10.0 Acute abdomen (principal)
CPT/HCPCS: 36415; 74177; 80053; 81001; 81025; 83690; 85025; 96365; 99283; Q9967; 81003; 87086

== ENCOUNTER 2017-12-16 09:42 | Emergency (ER) | payer MEDICAID ==
--- NOTE | 2017-12-16 10:29 | ED Physician Documentation ---
PD HPI ABD PAIN - Stated complaint Stated Complaint: ABD PX - Chief complaint Chief Complaint: Abd Pain - History obtained from History obtained from: Patient - History of Present Illness Timing - onset: How many weeks ago (2) Timing - duration: Weeks (2) Timing - details: Gradual onset, Still present, Waxing and waning Quality: Cramping, Aching, Pain Location: RLQ Radiation: No: Lower back, Right flank Improved by: No: Eating Worsened by: No: Eating Associated symptoms: Nausea. No: Fever, Vomiting, Diarrhea, Constipation Similar symptoms before: No diagnosis Recently seen: Emergency Dept (The patient was seen initially on 01 December 2019 for the right lower quadrant pain that has been going on for about a week. She had a CT scan that showed distal appendicitis. Her white count was normal and her exam not extremely tender so the surgeon deferred surgery at that time. She was seen 2 days later with continued pain still did not have a fever nor elevated white count. She was treated with oral antibiotics after discussion with the surgeon. She did not have resolution of the pain during that time however was lessened. She is been off the medication now for several days I believe and is having increased pain again. She was seen yesterday here in the ER with a CT scan showing some hydronephrosis and I your ureter that transitioned in the area of the appendix suggesting a local inflammation and mechanical blockage. There are no stones. She did not have hydronephrosis on the prior scan. Surgery was consulted and they were going to go to the OR for appendectomy and diagnostic laparoscopy. However the patient changed her mind at the last minute. However she had increasing pain again overnight and is now ready for surgery having no other obvious diagnosis other than subacute appendicitis. She presents now today and I will consult with the surgeon.) Review of Systems Constitutional: denies: Fever, Chills Nose: denies: Rhinorrhea / runny nose, Congestion Throat: denies: Sore throat Cardiac: denies: Chest pain / pressure, Palpitations Respiratory: denies: Dyspnea, Cough GI: reports: Abdominal Pain, Nausea. 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 : Frequency Musculoskeletal: None - Past Surgical History Past Surgical History: No - Present Medications Home Medications: Ambulatory Orders Medication Instructions Recorded Confirmed Multivitamin [Theragran] 1 each PO DAILY 12/16/17 12/16/17 - Allergies Allergies/Adverse Reactions: Allergies Allergy/AdvReac Type Severity Reaction Status Date / Time Sulfa (Sulfonamide Allergy Unknown Verified 12/16/17 09:56 Antibiotics) - Social History Does the pt smoke?: No Smoking Status: Never smoker Does the pt drink ETOH?: Yes Does the pt have substance abuse?: No - Immunizations Immunizations are current?: Yes - POLST POLST Status: Full Code PD ED PE NORMAL - Vitals Vital signs reviewed: Yes - General General: Alert and oriented X 3, Well developed/nourished - HEENT HEENT: Pharynx benign - Neck Neck: Supple, no meningeal sign, No adenopathy - Cardiac Cardiac: RRR, No murmur - Respiratory Respiratory: Clear bilaterally - Abdomen Abdomen: Normal bowel sounds, Non distended, No organomegaly, Other (Tender right lower quadrant at McBurney's point with localized guarding and mild percussion tenderness.) - Female Female : Deferred - Rectal Rectal: Deferred - Back Back: No CVA TTP - Derm Derm: Normal color, Warm and dry, No rash - Extremities Extremities: No deformity, No tenderness to palpate, Normal ROM s pain, No edema - Neuro Neuro: Alert and oriented X 3, No motor deficit, Normal speech Results - Vitals Vitals: Vital Signs - 24 hr 12/16/17 09:52 Temperature 36.5 C Heart Rate 72 Respiratory 18 Rate Blood Pressure 116/68 O2 Saturation 100 Oxygen O2 Source Room air PD MEDICAL DECISION MAKING - ED course Complexity details: reviewed old records, considered differential, d/w patient, d/w devops consultant (Consult surgeon data integration developer who came to the ER to evaluate the patient and evaluated yesterday's results and the prior CT scans. His feeling was the hydro-nephrosis as part of her symptoms and needs to be addressed by urology in addition to surgery evaluation for diagnostic laparoscopy. Given that we do not have urology feels the patient needs to be transferred.) - Sepsis Event Vital Signs: Vital Signs - 24 hr 12/16/17 09:52 Temperature 36.5 C Heart Rate 72 Respiratory 18 Rate Blood Pressure 116/68 O2 Saturation 100 Oxygen O2 Source Room air Departure - Departure Disposition: 02 Transfer Acute Care Hosp Clinical Impression: Hydronephrosis, Subacute appendicitis Abdominal pain Qualifiers: Abdominal location: right lower quadrant Qualified Code(s): R10.31 - Right lower quadrant pain Condition: Stable Record reviewed to determine appropriate education?: Yes
--- NOTE | 2017-12-16 11:22 | ANESTHESIA ---
Pre-Anesthesia VS, & Labs - Diagnosis ABD Pain - Procedure Lap Appy Vital Signs: Temp Pulse Resp BP Pulse Ox 36.5 C 72 18 116/68 100 12/16/17 09:52 12/16/17 09:52 12/16/17 09:52 12/16/17 09:52 12/16/17 09:52 Height 5 ft 4 in Weight (kg) 61.235 kg Body Mass Index 23.1 - NPO >8 hours - Is Patient ?: No Home Medications and Allergies Home Medications: Ambulatory Orders Medication Instructions Recorded Confirmed No Known Home Medications [No 12/15/17 12/15/17 Known Home Medications] Allergies/Adverse Reactions: Allergies Allergy/AdvReac Type Severity Reaction Status Date / Time Sulfa (Sulfonamide Allergy Unknown Verified 12/16/17 09:56 Antibiotics) Anes History & Medical History - Anesthetic History Anesthesia Complications: reports: No previous complications Family history of Anesthesia Complications: Denies Family history of Malignant Hyperthermia: Denies - Medical History Cardiovascular: reports: None Pulmonary: reports: None Gastrointestinal: reports: None Urinary: reports: Frequency Neuro: reports: None Musculoskeletal: reports: None Endocrine/Autoimmune: reports: None Skin: reports: None Smoking Status: Current some day smoker Psychosocial: reports: Alcohol Exam General: Alert, Oriented x3, Cooperative, Mild distress Dental: WNL Mouth Openin Fingerbreadth Neck Mobility: Normal Mallampati classification: I Thyromental Distance: 4-6 cm Respiratory: Lungs clear Cardiovascular: Regular rate, No murmurs Abdomen: Normal bowel sounds Extremities: No clubbing Plan Anesthesia Type: General Consent for Procedure(s) Verified and Reviewed: Yes Code Status: Attempt Resuscitation ASA classification: 2-Mild systemic disease Is this case an emergency?: Yes (Possible Appy)
[2017-12-16] MEDS ORDERED: SODIUM CHLORIDE 0.9% 1,000 ML IV ONE (12:49)
[2017-12-16] MEDS ORDERED: MORPHINE 2 MG/ML CARPUJECT IVP STA (12:49)
[2017-12-16] MEDS ORDERED: HYDROcod/ACETAM 5/325 MG TABLET PO STA (14:31)
[2017-12-16 15:11] VITALS: BP 111/68
--- NOTE | 2017-12-17 01:22 | CONSULTATION NOTE ---
DATE OF SERVICE: 12/16/2017 Physician: Newton Ashby MD HISTORY OF PRESENT ILLNESS: A 27-year-old, white female patient who has had multiple visits to the e mergency room. I am seeing the patient in the ED this morning. She is 27. She has had right-sided abdominal pain, flank pain, and right lower quadrant abdominal pain on and off for the last several w eeks. She has had several CT scans, the first one 2 weeks ago, showing a possible tip appendicitis w ith a small fecalith and otherwise a normal exam. She was treated with antibiotic therapy for possib ly early minimal appendicitis. With recurring pain, she came back yesterday, had another CT scan whi ch showed hydronephrosis, now on the right side, with a good deal of calyceal dilatation. We do not see any stone in the ureter and we did not see the distal part of the appendix. There certainly is n o pelvic abscess or major cause for hydronephrosis. Blood work yesterday showing a 14,000 white coun t, hemoglobin of 11.9, hematocrit 34.5. Urine negative for white cells, red cells. Pretty unremarka ble urinalysis. PHYSICAL EXAMINATION: The patient, on physical exam, is afebrile. She has some appetite. In questi oning her, she has tenderness along the right flank, some CVA tenderness and some right lower quadran t tenderness. No signs of peritonitis. The heart rate is 72, blood pressure 116/68. I have had a very lengthy discussion with the patient and her stepmother, regarding the possibility o f chronic appendicitis, which is very rare, and also this complication of a right hydroureter and hyd ronephrosis. There is no urologist here at this hospital, and my feeling is the patient should be se en by a general surgeon and a urologist, have 1 anesthetic, have a retrograde study of her right uret er, possible stent placement, possible laparoscopy and appendectomy, all with 1 anesthetic and in 1 s etting. This is not available here. I did offer the patient that I could remove her appendix, but I do not think that the appendix is causing ureteral obstruction. There is no sign of pelvic inflamma tion or abscess. The patient and her stepmother agreed to seek consultation at a nearby hospital [facility] has a urologist in attendance, and they are proceeding there shortly. The patient is very stable, very comfortable. This process has been going on for weeks and, again, I do not think she should be served just with laparoscopy, possible appendectomy, where we cannot deal with the ureter and uretera l obstruction. The patient understands and agrees. She is to remain n.p.o. when she is driving over to [facility] to see Dr. Koehler, a urologist. TD: 12/16/2017 12:37
== END 2017-12-16 14:50 | disposition short-term general hospital (02) ==
LOC: ED 09:42
DX: K36 Other appendicitis (principal); N13.30 Unspecified hydronephrosis
CPT/HCPCS: 99283; 99284; A9270